=== PATIENT | male | born 1960 | race Caucasian/White ===

== ENCOUNTER 2017-01-05 17:33 | Inpatient (IN) | payer BC ==
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
[2017-01-05] MEDS ORDERED: SODIUM CHLORIDE 0.9% 1,000 ML IV ONE (18:20)
[2017-01-05] MEDS ORDERED: IV VANCOMYCIN PER PHARMACY 1 EACH MISC MISCELLANE PRN (18:21)
[2017-01-05] MEDS ORDERED: MORPHINE SULFATE 4 MG/ML SYRINGE IVP STA (18:23)
[2017-01-05] MEDS ORDERED: VANCOMYCIN 1,750 MG in SODIUM CHLORIDE 0.9% 250 ML IVPB STA (18:24)
--- NOTE | 2017-01-05 18:29 | XR ---
EXAMINATION TYPE: XR hand complete RT DATE OF EXAM: 01/05/2017 COMPARISON: NONE HISTORY: Infection fifth digit TECHNIQUE: 3 views FINDINGS: I see no fracture nor dislocation. There is a 2 mm metallic foreign body in the soft tissue s adjacent to the base of the middle phalanx of the index finger. There is soft tissue swelling in th e little finger. I see no focal bone destruction. IMPRESSION: Metal foreign body in the index finger. Little finger soft tissue swelling. No sign of osteomyelitis.
[2017-01-05] MEDS ORDERED: AMPICILLIN-SULBACTAM 3 GM in SODIUM CHLORIDE 0.9% 100 ML IVPB STA (19:03)
[2017-01-05] MEDS ORDERED: ACETAMINOPHEN TAB 325 MG TAB PO PRN (19:24)
[2017-01-05] MEDS ORDERED: NALOXONE 0.4 MG/ML 1 ML VIAL IV PRN (19:24)
[2017-01-05] MEDS ORDERED: ONDANSETRON 4 MG/2 ML VIAL IVP PRN (19:24)
[2017-01-05] MEDS ORDERED: IBUPROFEN 400 MG TAB PO PRN (19:24)
[2017-01-05 19:33] LABS: Basophils # (A) 0.1 k/uL (0-0.2); Basophils % (A) 1 %; CHCM 34.1; Eosinophils # (A) 0.2 k/uL (0-0.7); Eosinophils % (A) 2 %; HCT 49.7 % (39.0-53.0); HDW 2.49; HGB 16.4 gm/dL (13.0-17.5); Luc # (Auto) 0.26; Luc % (Auto) 3; Lymphocytes # (A) 1.8 k/uL (1.0-4.8); Lymphocytes % (A) 19 %; MCH 31.1 pg (25.0-35.0); MCV 94.3 fL (80.0-100.0); Mean Platelet Volume 7.7; Monocytes # (A) 0.6 k/uL (0-1.0); Monocytes % (A) 6 %; Neutrophils # (A) 6.9 k/uL (1.3-7.7); Neutrophils % (A) 70 %; RBC 5.27 m/uL (4.30-5.90); WBC 9.8 k/uL (3.8-10.6); WBC (Perox) 9.61
[2017-01-05 19:42] LABS: ALT 24 U/L (21-72); AST 15 U/L (17-59); Alkaline Phosphatase 142 U/L (38-126); Anion Gap 12 mmol/L; Blood Urea Nitrogen 27 mg/dL (9-20); Calcium 9.6 mg/dL (8.4-10.2); Carbon Dioxide 26 mmol/L (22-30); Chloride 97 mmol/L (98-107); Non-African American GFR(MDRD) >60 (>60 ml/min/1.73 sqM); Potassium 5.3 mmol/L (3.5-5.1); Sodium 135 mmol/L (137-145); Total Bilirubin 0.7 mg/dL (0.2-1.3); Total Protein 7.2 g/dL (6.3-8.2)
[2017-01-05 19:44] LABS: Glucose 507 mg/dL (74-99)
[2017-01-05] MEDS ORDERED: INSULIN REGULAR 100 UNIT/ML VIAL IV ONE (19:45)
[2017-01-05] MEDS: INSULIN LISPRO (humaLOG) 300 UNIT/3 ML VIAL SQ SCH (20:36)
[2017-01-05 20:45] LABS: Glucose,Whole Blood 393 mg/dL (75-99)
[2017-01-05] MEDS: SODIUM CHLORIDE 0.9% 1,000 ML IV SCH (21:24)
[2017-01-05 21:43] VITALS: BMI 25.7
[2017-01-05] MEDS: MORPHINE SULFATE 4 MG/ML SYRINGE IV PRN (23:35)
[2017-01-06] MEDS: KETOROLAC 30 MG/ML 1 ML VIAL IVP PRN ×2 (00:49→16:43)
[2017-01-06] MEDS: SODIUM CHLORIDE 0.9% 1,000 ML IV SCH ×2 (06:44→16:11)
[2017-01-06 07:13] LABS: Glucose,Whole Blood 242 mg/dL (75-99)
[2017-01-06] MEDS: INSULIN LISPRO (humaLOG) 300 UNIT/3 ML VIAL SQ SCH ×6 (07:35→21:34)
[2017-01-06 08:18] LABS: Anion Gap 9 mmol/L; Blood Urea Nitrogen 25 mg/dL (9-20); Carbon Dioxide 22 mmol/L (22-30); Chloride 107 mmol/L (98-107); Glucose 215 mg/dL (74-99); Non-African American GFR(MDRD) >60 (>60 ml/min/1.73 sqM); Potassium 4.6 mmol/L (3.5-5.1); Sodium 138 mmol/L (137-145)
[2017-01-06 08:38] LABS: Hemoglobin A1C 10.6 % (4.2-6.1)
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
[2017-01-06] MEDS ORDERED: IV VANCOMYCIN PER PHARMACY 1 EACH MISC MISCELLANE PRN (11:08)
[2017-01-06] MEDS ORDERED: VANCOMYCIN 1,750 MG in SODIUM CHLORIDE 0.9% 250 ML IVPB STA (11:23)
[2017-01-06] MEDS: MORPHINE SULFATE 4 MG/ML SYRINGE IV PRN ×2 (11:42→21:00)
[2017-01-06 12:08] LABS: Glucose,Whole Blood 289 mg/dL (75-99)
[2017-01-06 17:03] LABS: Glucose,Whole Blood 338 mg/dL (75-99)
[2017-01-06] MEDS ORDERED: MIDAZOLAM 2 MG/2 ML VIAL IV PRN (19:51)
[2017-01-06] MEDS: LACTATED RINGERS 1,000 ML IV SCH (19:56)
[2017-01-06 20:47] LABS: Glucose,Whole Blood 404 mg/dL (75-99)
[2017-01-06] MEDS: INSULIN DETEMIR 100 UNIT/ML 10 ML VIAL SQ SCH (20:57)
[2017-01-06] MEDS ORDERED: VANCOMYCIN 1,500 MG in SODIUM CHLORIDE 0.9% 250 ML IVPB SCH (22:00)
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
[2017-01-06 23:48] LABS: C Reactive Protein 43.2 mg/L (<10.0)
[2017-01-07] MEDS: ceFAZolin 2 GM in SODIUM CHLORIDE 0.9% 100 ML IVPB SCH ×4 (00:18→23:17)
[2017-01-07] MEDS: SODIUM CHLORIDE 0.9% 1,000 ML IV SCH ×3 (00:21→21:06)
[2017-01-07 02:15] LABS: Glucose,Whole Blood 186 mg/dL (75-99)
[2017-01-07 07:11] LABS: Glucose,Whole Blood 100 mg/dL (75-99)
[2017-01-07] MEDS: PANTOPRAZOLE 40 MG TABLET PO SCH (07:55)
[2017-01-07] MEDS: ASPIRIN 81 MG CHEW PO SCH (07:55)
[2017-01-07] MEDS: INSULIN LISPRO (humaLOG) 300 UNIT/3 ML VIAL SQ SCH ×8 (07:55→21:04)
[2017-01-07 08:39] LABS: Anion Gap 9 mmol/L; Blood Urea Nitrogen 18 mg/dL (9-20); Calcium 8.7 mg/dL (8.4-10.2); Carbon Dioxide 25 mmol/L (22-30); Chloride 107 mmol/L (98-107); Glucose 96 mg/dL (74-99); Non-African American GFR(MDRD) >60 (>60 ml/min/1.73 sqM); Potassium 4.4 mmol/L (3.5-5.1); Sodium 141 mmol/L (137-145)
[2017-01-07] MEDS: MORPHINE SULFATE 4 MG/ML SYRINGE IV PRN ×3 (10:00→21:04)
--- NOTE | 2017-01-07 10:13 | P.PN ---
Subjective Principal diagnosis: Right little finger cellulitis This is a 56-year-old gentleman whom we're following regarding infection to his right little finger. He states that his pain is improved today. He states that he has purulent drainage with the warm soaks. Objective - Vital Signs Vital signs: Vital Signs Temp 96.2 F L 01/07/17 07:00 Pulse 68 01/07/17 07:00 Resp 16 01/07/17 07:00 BP 136/63 01/07/17 07:00 Pulse Ox 97 01/07/17 07:00 Intake & Output 01/06/17 01/07/17 01/07/17 18:59 06:59 18:59 Weight 79 kg Other: Voiding Method Toilet Toilet # Voids 2 2 1 - Exam This is a pleasant 56-year-old gentleman in no acute distress. He is alert and oriented 3. Exam of the right upper extremity reveals that the little finger has less swelling today. There is mild erythema. There is no active drainage at this time. He has improved motion to the MCP and PIP joints. Neurovascular status the upper extremity is intact. - Labs CBC & Chem 7: 01/05/17 19:10 01/07/17 07:57 Labs: Abnormal Lab Results - Last 24 Hours (Table) 01/06/17 01/06/17 01/06/17 Range/Units 07:44 12:01 17:00 POC Glucose (mg/dL) 289 H 338 H (75-99) mg/dL C-Reactive Protein 43.2 H (<10.0) mg/L Prealbumin 14 L (18-36) mg/dL 01/06/17 01/07/17 01/07/17 Range/Units 20:46 02:13 07:02 POC Glucose (mg/dL) 404 H 186 H 100 H (75-99) mg/dL C-Reactive Protein (<10.0) mg/L Prealbumin (18-36) mg/dL Microbiology - Last 24 Hours (Table) 01/05/17 19:10 Blood Culture - Preliminary Blood No Growth after 24 hours Assessment and Plan (1) Cellulitis of right little finger Status: Acute Plan: The clinical and x-ray findings are discussed with the patient. He is able to extend the finger fully so I am less concerned about a flexor tenosynovitis. He is improving clinically. I discussed the case with Dr. King who agrees that there is no indication for incision and drainage today. We will continue with warm soaks. I recommend 1 more day of IV antibiotics. We will reevaluate in the morning. If he continues to improve he may be discharged from orthopedic standpoint on oral antibiotics. We will most likely have him continue warm soaks at home.
[2017-01-07 12:00] LABS: Glucose,Whole Blood 256 mg/dL (75-99)
[2017-01-07] MEDS: MULTIVITAMINS, THERA 1 EACH TAB PO SCH (12:44)
--- NOTE | 2017-01-07 16:06 | P.PN ---
Subjective 01/07/2017. Personal being dictated for Dr. Corral. Interval history: Is a 56-year-old gentleman admitted with right little finger infection/cellulitis with purulent drainage and multiple other medical issues. Evaluated by orthopedics and patient is scheduled for potential I&D tomorrow. X -ray reporting metal foreign body in the index finger, soft tissue swelling, no sign of osteomyelitis. Maintained on ceftazolin as per infectious disease. Denies chest pain,palpitations or increasing shortness of breath. Objective - Vital Signs Vital signs: Vital Signs Temp 96.5 F L 01/07/17 15:00 Pulse 76 01/07/17 15:00 Resp 19 01/07/17 15:00 BP 154/73 01/07/17 15:00 Pulse Ox 97 01/07/17 15:00 Intake & Output 01/06/17 01/07/17 01/07/17 18:59 06:59 18:59 Weight 79 kg Other: Voiding Method Toilet Toilet # Voids 2 2 3 - Exam PHYSICAL EXAM : VITAL SIGNS: [as above] GENERAL: [Sitting up in bed, no acute distress] HEENT: [Pupils equal conjunctiva normal. Oral mucosa moist] NECK: [Supple, no JVD] RESPIRATORY EFFORT:[ Normal] LUNGS: [Clear to auscultation, bilateral bases diminished, no wheezing crackles or rhonchi] CARDIOVASCULAR[ regular S1 and S2, no murmurs rubs or gallops] GI: [Abdomen soft, nontender, positive bowel sounds. No guarding, no rigidity] PSYCH: [Alert and oriented -3, mood and affect normal.] SKIN: [Right little finger edematous, currently without drainage, limited mobility, limited flexion] NEURO: No focal deficits, moves all 4 extremities, strength and sensation grossly intact - Labs CBC & Chem 7: 01/05/17 19:10 01/07/17 07:57 Labs: Abnormal Lab Results - Last 24 Hours (Table) 01/06/17 01/06/17 01/06/17 Range/Units 07:44 17:00 20:46 POC Glucose (mg/dL) 338 H 404 H (75-99) mg/dL C-Reactive Protein 43.2 H (<10.0) mg/L Prealbumin 14 L (18-36) mg/dL 01/07/17 01/07/1701/07/17 Range/Units 02:13 07:02 11:55 POC Glucose (mg/dL) 186 H 100 H 256 H (75-99) mg/dL C-Reactive Protein (<10.0) mg/L Prealbumin (18-36) mg/dL Microbiology - Last 24 Hours (Table) 01/05/17 19:10 Blood Culture - Preliminary Blood No Growth after 24 hours Assessment and Plan Plan: 1.[Cellulitis of right little finger,]. 2. [ Diabetes mellitus type 2]. 3. [ CAD]. 4. [ Gastroesophageal reflux disease]. 5. [ Ongoing nicotine dependence]. And multiple other medical issues. Plan: Continue on current medication regime ,monitoring and symptomatic treatment. Antibiotics as per infectious disease. Orthopedics reevaluating finger in a.m. for potential I&D. Close monitoring of Accu-Cheks. Further recommendations to follow. Discharge planning in progress. The impression and plan of care has been dictated as directed. : I performed a H&P examination of this patient and discussed the same with the dictator. I agree with the dictator's note. Any additional findings/opinions/ etc. will be noted.
[2017-01-07 16:52] LABS: Glucose,Whole Blood 177 mg/dL (75-99)
--- NOTE | 2017-01-07 18:36 | P.PN ---
Subjective Principal diagnosis: Abscess right hand Pleasant 56-year-old male with long-standing history of diabetes mellitus type 2 presents to the local emergency center a few days ago. Is having pain and swelling to his right hand fifth finger. He had a pustule that had formed was getting some pain and swelling to his finger. He was seen but no blood work was performed. Concerns to MRSA infection and was placed on oral Bactrim. Now presents the emergency center at this facility with increasing pain and swelling to the hand. It is over the fifth finger right hand tracking along the lateral surface of the hand. Difficulty with range of motion. The patient relates this evening that the areas opened and drained and has had a major improvement of the pain and discomfort upon the movement of the hand. There is also complaints of some difficulties with multiple skin lesions that he has not back of his neck and his upper arm. The patient relates that he has been now 3 months without test strips for his glucose control. He is actually borrowed some insulin from friends until he could get some further input from his primary care physician. He is denying significant fevers chills or rigors. He has no other acute complaints at this time. Outside culture shows MSSA. Tolerating high-dose ceftazolin well Orthopedics is following up considering incision and drainage tomorrow. Objective - Vital Signs Vital signs: Vital Signs Temp 96.5 F L 01/07/17 15:00 Pulse 76 01/07/17 15:00 Resp 19 01/07/17 15:00 BP 154/73 01/07/17 15:00 Pulse Ox 97 01/07/17 15:00 Intake & Output 01/06/17 01/07/17 01/07/17 18:59 06:59 18:59 Weight 79 kg Other: Voiding Method Toilet Toilet # Voids 2 2 3 - Exam Jose 56-year-old male of aesthetic build HEENT: Anicteric conjunctiva are pink and moist nasal mucosa grossly intact without significant lesions, there is no thrush. Neck: The neck is supple without significant lymphadenopathy or thyromegaly. Lungs: Symmetrical air entry is noted. There are few basilar crackles and scattered wheezes are noted. No bronchial sounds. Heart: Regular rate and rhythm with an audible S1-S2, no S3 soft S4 There is no significant murmur click or rub, PMI was nondisplaced. Abdomen: Positive bowel sounds soft and nontender without palpable masses or organomegaly. There was no guarding or rebound. Extremities: The left upper extremity has no lesions. Right upper shoulder reveals evidence of the abscess on the proximal phalanx fifth finger. Is evidence of some erythema to the area that does track and of the hand. The significant pain that he was having earlier is now improved with the spontaneous opening of the abscess. Tenderness is improved. He has remarkably good range of motion to that fifth finger. The lower extremities are free from significant edema. The peripheral pulses were 2+ and symmetric. Neuro: Awake alert oriented to person place and time. There are no acute new gross focal sensory motor deficits. - Labs CBC & Chem 7: 01/05/17 19:10 01/07/17 07:57 Labs: Abnormal Lab Results - Last 24 Hours (Table) 01/06/17 01/06/17 01/07/17 Range/Units 07:44 20:46 02:13 POC Glucose (mg/dL) 404 H 186 H (75-99) mg/dL C-Reactive Protein 43.2 H (<10.0) mg/L Prealbumin 14 L (18-36) mg/dL 01/07/17 01/07/17 01/07/17 Range/Units 07:02 11:55 16:51 POC Glucose (mg/dL) 100 H 256 H 177 H (75-99) mg/dL C-Reactive Protein (<10.0) mg/L Prealbumin (18-36) mg/dL Microbiology - Last 24 Hours (Table) 01/05/17 19:10 Blood Culture - Preliminary Blood No Growth after 24 hours Laboratory Results WBC 9.8 k/uL (3.8-10.6) 01/05/17 19:10 RBC 5.27 m/uL (4.30-5.90) 01/05/17 19:10 Hgb 16.4 gm/dL (13.0-17.5) 01/05/17 19:10 Hct 49.7 % (39.0-53.0) 01/05/17 19:10 MCV 94.3 fL (80.0-100.0) 01/05/17 19:10 MCH 31.1 pg (25.0-35.0) 01/05/17 19:10 MCHC 33.0 g/dL (31.0-37.0) 01/05/17 19:10 RDW 13.0 % (11.5-15.5) 01/05/17 19:10 Plt Count 260 k/uL (150-450) 01/05/17 19:10 Neutrophils % 70 % 01/05/17 19:10 Lymphocytes % 19 % 01/05/17 19:10 Monocytes % 6 % 01/05/17 19:10 Eosinophils % 2 % 01/05/17 19:10 Basophils % 1 % 01/05/17 19:10 Neutrophils # 6.9 k/uL (1.3-7.7) 01/05/17 19:10 Lymphocytes # 1.8 k/uL (1.0-4.8) 01/05/17 19:10 Monocytes # 0.6 k/uL (0-1.0) 01/05/17 19:10 Eosinophils # 0.2 k/uL (0-0.7) 01/05/17 19:10 Basophils # 0.1 k/uL (0-0.2) 01/05/17 19:10 ESR 15 mm/hr (0-15) 01/06/17 07:44 Sodium 141 mmol/L (137-145) 01/07/17 07:57 Potassium 4.4 mmol/L (3.5-5.1) 01/07/17 07:57 Chloride 107 mmol/L (98-107) 01/07/17 07:57 Carbon Dioxide 25 mmol/L (22-30) 01/07/17 07:57 Anion Gap 9 mmol/L 01/07/17 07:57 BUN 18 mg/dL (9-20) 01/07/17 07:57 Creatinine 0.71 mg/dL (0.66-1.25) 01/07/17 07:57 Est GFR (MDRD) Af Amer >60 (>60 ml/min/1.73 sqM) 01/07/17 07:57 Est GFR (MDRD) Non-Af >60 (>60 ml/min/1.73 sqM) 01/07/17 07:57 Glucose 96 mg/dL (74-99) 01/07/17 07:57 POC Glucose (mg/dL) 177 mg/dL (75-99) H 01/07/17 16:51 POC Glu Scrap Stripper Hand ID Mimi Reed 01/07/17 16:[address] Glu mg/dL 258 mg/dL 01/05/17 19:10 Hemoglobin A1c 10.6 % (4.2-6.1) H 01/05/17 19:10 Plasma Lactic Acid Miki 1.7 mmol/L (0.7-2.0) 01/05/17 19:10 Calcium 8.7 mg/dL (8.4-10.2) 01/07/17 07:57 Total Bilirubin 0.7 mg/dL (0.2-1.3) 01/05/17 19:10 AST 15 U/L (17-59) L 01/05/17 19:10 ALT 24 U/L (21-72) 01/05/17 19:10 Alkaline Phosphatase 142 U/L (38-126) H 01/05/17 19:10 C-Reactive Protein 43.2 mg/L (<10.0) H 01/06/17 07:44 Total Protein 7.2 g/dL (6.3-8.2) 01/05/17 19:10 Albumin 4.2 g/dL (3.5-5.0) 01/05/17 19:10 Prealbumin 14 mg/dL (18-36) L 01/06/17 07:44 Microbiology 01/05/17 19:10 Blood Blood Culture - Preliminary No Growth after 24 hours Assessment and Plan (1) Diabetes mellitus type 2 with complications, uncontrolled Narrative/Plan: 48-year-old male who has history of heavy is not as type II this had difficulty over the last several months with control of his diabetes. He had no test strips. He is relating that he started to have symptoms about a week ago with some fatigue and malaise. Food was tasting poorly. Was unable to check his sugar. He was starting to have difficulties with the skin with multiple small skin lesions and abscesses. Developed the abscess in his right hand. It markedly worsened quickly. Failed oral antibiotic therapy. Has now been admitted. She's been seen by orthopedics. Appears incision now been some spontaneous drainage. Orthopedics will reevaluate for the need for true surgical incision and drainage. He is now had increasing swelling. Increasing concerns for deeper abscess not responding well to antibiotic therapy due to his recent uncontrolled diabetes or diabetic systolic and may need to do an incision and drainage tomorrow. MSSA was isolated and by therapy will be altered to high-dose Cefazolin. Patient believes is up-to-date with his tetanus. Multivitamin is added. Pre- albumin is low at 14 and needs protein supplementation. Blood sugars are much better. Sed rate is fortunately only 15 in the CRP is elevated due to the current infection. Hemoglobin A1c is very elevated at 10.6. He will certainly need extensive follow-up about his diabetes care after discharge to prevent further difficulties. The patient is known to the service from his history of the penile implant infection. Once he is infection free for a while but sugars are well he is contemplating having an exchange of his current prosthesis. I suggested I will be happy to follow him here in [place] area if he does have surgery. Status: Acute (2) Abscess of right hand including fingers Status: Acute (3) MSSA (methicillin susceptible Staphylococcus aureus) infection Status: Acute
[2017-01-07] MEDS: LACTATED RINGERS 1,000 ML IV SCH (19:47)
[2017-01-07 20:53] LABS: Glucose,Whole Blood 93 mg/dL (75-99)
[2017-01-07] MEDS: INSULIN DETEMIR 100 UNIT/ML 10 ML VIAL SQ SCH (21:06)
[2017-01-07 23:22] VITALS: RESP 16
[2017-01-08 07:21] LABS: Glucose,Whole Blood 232 mg/dL (75-99)
[2017-01-08] MEDS: PANTOPRAZOLE 40 MG TABLET PO SCH (08:16)
[2017-01-08] MEDS: ceFAZolin 2 GM in SODIUM CHLORIDE 0.9% 100 ML IVPB SCH (08:16)
[2017-01-08] MEDS: INSULIN LISPRO (humaLOG) 300 UNIT/3 ML VIAL SQ SCH ×6 (08:22→13:14)
[2017-01-08] MEDS: ASPIRIN 81 MG CHEW PO SCH (08:30)
--- NOTE | 2017-01-08 08:44 | P.DS ---
Providers Date of admission: 01/05/17 19:52 Expected date of discharge: 01/08/17 Attending physician: Kael King Consults: 01/05/17 19:29 Consult Physician Urgent Consulting Provider: Pepe Soliman Consult Reason/Comments: right fifth finger tenosynovitis, hyperglycemia Do you want consulting provider notified?: Yes 01/06/17 11:08 Consult Physician Urgent Consulting Provider: Mayank Null Consult Reason/Comments: Eval right little finger Do you want consulting provider notified?: Yes Primary care physician: Stated None - Discharge Diagnosis(es) (1) Cellulitis of right little finger Current Visit: Yes Status: Acute (2) MSSA (methicillin susceptible Staphylococcus aureus) infection Current Visit: Yes Status: Acute Hospital Course: This is a 48-year-old male admitted to [facility] on 2016 with a right little finger infection. He is also had difficulty managing his blood sugar. He has been on IV antibiotics and doing warm soaks twice daily. The range of motion of his finger has improved significantly. The patient is stable from orthopedic standpoint on 01/08/2017 for discharge to home. Patient Condition at Discharge: Stable Plan - Discharge Summary New Discharge Prescriptions: No Action Esomeprazole Magnesium [NexIUM] 40 mg PO DAILY Aspirin EC [Ecotrin Low Dose] 81 mg PO DAILY #30 tablet. Sulfamethox-Tmp 800-160Mg [Bactrim DS 800-160 mg] 1 tab PO Q12HR Insulin Detemir [Levemir] 40 unit SQ HS Discharge Medication List Esomeprazole Magnesium [NexIUM] 40 mg PO DAILY 01/09/14 [History] Aspirin EC [Ecotrin Low Dose] 81 mg PO DAILY #30 tablet. 01/10/14 [Rx] Insulin Detemir [Levemir] 40 unit SQ HS 01/05/17 [History] Sulfamethox-Tmp 800-160Mg [Bactrim DS 800-160 mg] 1 tab PO Q12HR 01/05/17 [ History] Follow up Appointment(s)/Referral(s): Brennen Duke MD [STAFF PHYSICIAN] - 1-2 days Kael King MD [STAFF PHYSICIAN] - 1 Week Patient Instructions/Handouts: Type 2 Diabetes in Adults (DC), Tenosynovitis ( GEN) Activity/Diet/Wound Care/Special Instructions: Cardiac, diabetic diet. NO smoking, cessation information provided. Warm soaks with antibacterial soap twice daily. Antibiotics per Dr Null.
[2017-01-08 09:23] LABS: Anion Gap 9 mmol/L; Blood Urea Nitrogen 12 mg/dL (9-20); Calcium 9.3 mg/dL (8.4-10.2); Carbon Dioxide 26 mmol/L (22-30); Chloride 103 mmol/L (98-107); Glucose 248 mg/dL (74-99); Non-African American GFR(MDRD) >60 (>60 ml/min/1.73 sqM); Sodium 138 mmol/L (137-145)
[2017-01-08] MEDS: SODIUM CHLORIDE 0.9% 1,000 ML IV SCH (10:05)
[2017-01-08 12:07] LABS: Glucose,Whole Blood 165 mg/dL (75-99)
[2017-01-08] MEDS: MULTIVITAMINS, THERA 1 EACH TAB PO SCH (12:10)
[2017-01-08] MEDS: MORPHINE SULFATE 4 MG/ML SYRINGE IV PRN (15:33)
[2017-01-08 15:36] VITALS: BP 122/83; PULSE 71; TEMP 97.7
--- NOTE | 2017-01-08 16:07 | P.PN ---
Subjective Interval history: Is a 56-year-old gentleman admitted with right little finger infection/cellulitis with purulent drainage and multiple other medical issues. Evaluated by orthopedics and patient is scheduled for potential I&D tomorrow. X -ray reporting metal foreign body in the index finger, soft tissue swelling, no sign of osteomyelitis. Maintained on cefazolin as per infectious disease. Denies chest pain,palpitations or increasing shortness of breath. Objective - Vital Signs Vital signs: Vital Signs Temp 97.7 F 01/08/17 15:00 Pulse 71 01/08/17 15:00 Resp 16 01/08/17 15:00 BP 122/83 01/08/17 15:00 Pulse Ox 98 01/08/17 15:00 Intake & Output 01/07/17 01/08/17 01/08/17 18:59 06:59 18:59 Other: Voiding Method Toilet Toilet # Voids 3 1 2 - Exam PHYSICAL EXAM : VITAL SIGNS: [as above] GENERAL: [Sitting up in bed, no acute distress] HEENT: [Pupils equal conjunctiva normal. Oral mucosa moist] NECK: [Supple, no JVD] RESPIRATORY EFFORT:[ Normal] LUNGS: [Clear to auscultation, bilateral bases diminished, no wheezing crackles or rhonchi] CARDIOVASCULAR[ regular S1 and S2, no murmurs rubs or gallops] GI: [Abdomen soft, nontender, positive bowel sounds. No guarding, no rigidity] PSYCH: [Alert and oriented -3, mood and affect normal.] SKIN: [Right little finger edematous, currently without drainage, limited mobility, limited flexion] NEURO: No focal deficits, moves all 4 extremities, strength and sensation grossly intact - Labs CBC & Chem 7: 01/05/17 19:10 01/08/17 08:39 Labs: Abnormal Lab Results - Last 24 Hours (Table) 01/07/17 01/08/17 01/08/17 Range/Units 16:51 06:57 08:39 Creatinine 0.64 L (0.66-1.25) mg/dL Glucose 248 H (74-99) mg/dL POC Glucose (mg/dL) 177 H 232 H (75-99) mg/dL 01/08/17 Range/Units 11:48 Creatinine (0.66-1.25) mg/dL Glucose (74-99) mg/dL POC Glucose (mg/dL) 165 H (75-99) mg/dL Microbiology - Last 24 Hours (Table) 01/05/17 19:10 Blood Culture - Preliminary Blood No Growth after 48 hours Assessment and Plan Plan: Plan: 1.[Cellulitis of right little finger,]. Patient is on ceftezole. 2. [ Diabetes mellitus type 2]. Patient was continued on Lantus and I added pre -meal insulin 10 units with each meal and patient were discharged on 10 units of regular insulin. 3. [ CAD]. 4. [ Gastroesophageal reflux disease]. 5. [ Ongoing nicotine dependence]. We'll continue to follow the patient on as-needed basis.
--- NOTE | 2017-01-08 16:14 | P.PN ---
Subjective Principal diagnosis: Abscess right hand Pleasant 56-year-old male with long-standing history of diabetes mellitus type 2 presents to the local emergency center a few days ago. Is having pain and swelling to his right hand fifth finger. He had a pustule that had formed was getting some pain and swelling to his finger. He was seen but no blood work was performed. Concerns to MRSA infection and was placed on oral Bactrim. Now presents the emergency center at this facility with increasing pain and swelling to the hand. It is over the fifth finger right hand tracking along the lateral surface of the hand. Difficulty with range of motion. The patient relates this evening that the areas opened and drained and has had a major improvement of the pain and discomfort upon the movement of the hand. There is also complaints of some difficulties with multiple skin lesions that he has not back of his neck and his upper arm. The patient relates that he has been now 3 months without test strips for his glucose control. He is actually borrowed some insulin from friends until he could get some further input from his primary care physician. He is denying significant fevers chills or rigors. He has no other acute complaints at this time. Outside culture shows MSSA. Tolerating high-dose ceftazolin well Patient improved today. Has been seen by orthopedics. With his improvement no plans for incision and drainage. He's had spontaneous drainage. He does have some residual pain on the lateral surface of the fifth metacarpophalangeal joint. But the redness and difficulty with range of motion have improved. He has no fevers chills or rigors. Objective - Vital Signs Vital signs: Vital Signs Temp 97.7 F 01/08/17 15:00 Pulse 71 01/08/17 15:00 Resp 16 01/08/17 15:00 BP 122/83 01/08/17 15:00 Pulse Ox 98 01/08/17 15:00 Intake & Output 01/07/17 01/08/17 01/08/17 18:59 06:59 18:59 Other: Voiding Method Toilet Toilet # Voids 3 1 2 - Exam Pleasant 56-year-old male of aesthetic build HEENT: Anicteric conjunctiva are pink and moist nasal mucosa grossly intact without significant lesions, there is no thrush. Neck: The neck is supple without significant lymphadenopathy or thyromegaly. Lungs: Symmetrical air entry is noted. There are few basilar crackles and scattered wheezes are noted. No bronchial sounds. Heart: Regular rate and rhythm with an audible S1-S2, no S3 soft S4 There is no significant murmur click or rub, PMI was nondisplaced. Abdomen: Positive bowel sounds soft and nontender without palpable masses or organomegaly. There was no guarding or rebound. Extremities: The left upper extremity has no lesions. Right upper shoulder reveals evidence of the abscess on the proximal phalanx fifth finger. Is evidence of some erythema to the area that does track and of the hand. The significant pain that he was having earlier is now improved with the spontaneous opening of the abscess. Tenderness is improved. He has remarkably good range of motion to that fifth finger. There is no further purulent drainage. There are still some residual erythema at the site. Swelling is improved. Still has some point tenderness at the fifth metacarpophalangeal joint. But it does not inhibit his range of motion. No tenderness over the tendon structure. The lower extremities are free from significant edema. The peripheral pulses were 2+ and symmetric. Neuro: Awake alert oriented to person place and time. There are no acute new gross focal sensory motor deficits. - Labs CBC & Chem 7: 01/05/17 19:10 01/08/17 08:39 Labs: Abnormal Lab Results - Last 24 Hours (Table) 01/07/17 01/08/17 01/08/17 Range/Units 16:51 06:57 08:39 Creatinine 0.64 L (0.66-1.25) mg/dL Glucose 248 H (74-99) mg/dL POC Glucose (mg/dL) 177 H 232 H (75-99) mg/dL 01/08/17 Range/Units 11:48 Creatinine (0.66-1.25) mg/dL Glucose (74-99) mg/dL POC Glucose (mg/dL) 165 H (75-99) mg/dL Microbiology - Last 24 Hours (Table) 01/05/17 19:10 Blood Culture - Preliminary Blood No Growth after 48 hours Laboratory Results WBC 9.8 k/uL (3.8-10.6) 01/05/17 19:10 RBC 5.27 m/uL (4.30-5.90) 01/05/17 19:10 Hgb 16.4 gm/dL (13.0-17.5) 01/05/17 19:10 Hct 49.7 % (39.0-53.0) 01/05/17 19:10 MCV 94.3 fL (80.0-100.0) 01/05/17 19:10 MCH 31.1 pg (25.0-35.0) 01/05/17 19:10 MCHC 33.0 g/dL (31.0-37.0) 01/05/17 19:10 RDW 13.0 % (11.5-15.5) 01/05/17 19:10 Plt Count 260 k/uL (150-450) 01/05/17 19:10 Neutrophils % 70 % 01/05/17 19:10 Lymphocytes % 19 % 01/05/17 19:10 Monocytes % 6 % 01/05/17 19:10 Eosinophils % 2 % 01/05/17 19:10 Basophils % 1 % 01/05/17 19:10 Neutrophils # 6.9 k/uL (1.3-7.7) 01/05/17 19:10 Lymphocytes # 1.8 k/uL (1.0-4.8) 01/05/17 19:10 Monocytes # 0.6 k/uL (0-1.0) 01/05/17 19:10 Eosinophils # 0.2 k/uL (0-0.7) 01/05/17 19:10 Basophils # 0.1 k/uL (0-0.2) 01/05/17 19:10 ESR 15 mm/hr (0-15) 01/06/17 07:44 Sodium 138 mmol/L (137-145) 01/08/17 08:39 Potassium 5.0 mmol/L (3.5-5.1) 01/08/17 08:39 Chloride 103 mmol/L (98-107) 01/08/17 08:39 Carbon Dioxide 26 mmol/L (22-30) 01/08/17 08:39 Anion Gap 9 mmol/L 01/08/17 08:39 BUN 12 mg/dL (9-20) 01/08/17 08:39 Creatinine 0.64 mg/dL (0.66-1.25) L 01/08/17 08:39 Est GFR (MDRD) Af Amer >60 (>60 ml/min/1.73 sqM) 01/08/17 08:39 Est GFR (MDRD) Non-Af >60 (>60 ml/min/1.73 sqM) 01/08/17 08:39 Glucose 248 mg/dL (74-99) H 01/08/17 08:39 POC Glucose (mg/dL) 165 mg/dL (75-99) H 01/08/17 11:48 POC Glu Irrigation Installation Specialist ID Celia Hanks 01/08/17 11:[address] Glu mg/dL 258 mg/dL 01/05/17 19:10 Hemoglobin A1c 10.6 % (4.2-6.1) H 01/05/17 19:10 Plasma Lactic Acid Miki 1.7 mmol/L (0.7-2.0) 01/05/17 19:10 Calcium 9.3 mg/dL (8.4-10.2) 01/08/17 08:39 Total Bilirubin 0.7 mg/dL (0.2-1.3) 01/05/17 19:10 AST 15 U/L (17-59) L 01/05/17 19:10 ALT 24 U/L (21-72) 01/05/17 19:10 Alkaline Phosphatase 142 U/L (38-126) H 01/05/17 19:10 C-Reactive Protein 43.2 mg/L (<10.0) H 01/06/17 07:44 Total Protein 7.2 g/dL (6.3-8.2) 01/05/17 19:10 Albumin 4.2 g/dL (3.5-5.0) 01/05/17 19:10 Prealbumin 14 mg/dL (18-36) L 01/06/17 07:44 Microbiology 01/05/17 19:10 Blood Blood Culture - Preliminary No Growth after 48 hours Assessment and Plan (1) Diabetes mellitus type 2 with complications, uncontrolled Narrative/Plan: 48-year-old male who has history of heavy is not as type II this had difficulty over the last several months with control of his diabetes. He had no test strips. He is relating that he started to have symptoms about a week ago with some fatigue and malaise. Food was tasting poorly. Was unable to check his sugar. He was starting to have difficulties with the skin with multiple small skin lesions and abscesses. Developed the abscess in his right hand. It markedly worsened quickly. Failed oral antibiotic therapy. Has now been admitted. She's been seen by orthopedics. Appears incision now been some spontaneous drainage. Orthopedics will reevaluate for the need for true surgical incision and drainage. He is now had increasing swelling. Increasing concerns for deeper abscess not responding well to antibiotic therapy due to his recent uncontrolled diabetes or diabetic systolic and may need to do an incision and drainage tomorrow. MSSA was isolated and by therapy will be altered to high-dose Cefazolin. Patient believes is up-to-date with his tetanus. Multivitamin is added. Pre- albumin is low at 14 and needs protein supplementation. Blood sugars are much better. Sed rate is fortunately only 15 in the CRP is elevated due to the current infection. Hemoglobin A1c is very elevated at 10.6. He will certainly need extensive follow-up about his diabetes care after discharge to prevent further difficulties. The patient is known to the service from his history of the penile implant infection. Once he is infection free for a while but sugars are well he is contemplating having an exchange of his current prosthesis. I suggested I will be happy to follow him here in [facility] if he does have surgery. The patient is now improved. Will be discharged home. Cefuroxime 500 mg every 12 hours as given for home therapy. When the for 10 days. Follow-up in the office next week to ensure that he has ongoing improvement. Contact the office if he has any worsening status. Significant time was spent regarding his diabetes care. And the importance of monitoring his blood sugars and taking his insulins to improve his hemoglobin A1c and prevent further infections and allow current infection to heal. He will take a multivitamin at home also. [facility] Status: Acute (2) Abscess of right hand including fingers Status: Acute (3) MSSA (methicillin susceptible Staphylococcus aureus) infection Status: Acute
--- NOTE | 2017-01-08 16:47 | CONS ---
CONSULTATION AND H&P REASON FOR CONSULTATION: Right finger cellulitis; possibility of tenosynovitis of right little finger. Highly elevated blood sugars going up to 500. Management of diabetes mellitus. Patient is a 56-year-old. Had MRSA in the past. He came in with right little finger infection which started on Tuesday. The patient was given Bactrim and was discharged home. Patient took Bactrim for about 2 to 3 days, without any improvement in symptoms. Patient came back and patient was admitted with a swollen finger, for which Orthopedics evaluated the patient. Patient admitted to orthopedic service. They do not believe patient has significant tenosynovitis. Patient was appropriately started on vancomycin. Patient was started on ( ) watch his blood sugars today. Patient ( ) yesterday. His blood sugars were at 500; now came down to 200. Will watch with his home regimen and see how his blood sugars ( ) accordingly. Patient has severe pain in the finger area where he has cellulitis and the possibility of a small abscess in that area which started as a small boil which he tried to drain the pus from. ROS: all others systems were reviewed and were negative. PAST MEDICAL HISTORY: 1. Coronary artery disease. 2. Diabetes mellitus, although patient uses aspirin. 3. DVT in the past. 4. Gastroesophageal reflux disease. 5. Myocardial infarction in the past. 6. Pneumonia. 7. Prostate disorder. 8. Cardiac catheterization and stent placement. 9. Orthopedic surgeries in the past. SOCIAL HISTORY: Patient does smoke a pack per day. Denied any alcohol abuse or any drug abuse. FAMILY HISTORY: Patient was adopted and does not know any of his biological family history. Home medications include: 1. Esomeprazole. 2. Levemir 40 units at bedtime. 3. Bactrim. Patient is also started on 8 units t.i.d. pre-meal insulin, which I believe is appropriate. Patient was started on vancomycin. PHYSICAL EXAMINATION: VITAL SIGNS: Temperature 96.6, pulse of 66, respiratory rate of 18, blood pressure 128/71. Saturating at 99% on room air. ( ) MUSCULOSKELETAL: Patient's right little finger, fifth finger, has significant swelling. There is no active drainage of pus. Patient is soaking ( ) in the warm water when I evaluated the patient, because of which I am unable to assess the redness and localization of temperature appropriately at that time. LABORATORY DATA: CBC, CMP are abnormal for low sodium of 135, which improved, which is secondary to pseudohyponatremia. Potassium of 5.3, which improved. Patient has minimal anion gap resulting in elevated potassium. Even though the ketones were never tested, patient has normal anion gap now and improved blood sugars to 215 today. Hemoglobin A1c of 10.6, consistent with uncontrolled blood sugars at home. AST is minimally elevated; nothing concerning at this point of time. Hand x-ray showed a metal or a foreign body in ( ) index finger. Little finger soft tissue swelling. ASSESSMENT AND PLAN: 1. ( ) cellulitis with possible ( ) and rule out tenosynovitis of the right little finger, for which we will continue with vancomycin. Orthopedics evaluated the patient. 2. Highly elevated blood sugars; uncontrolled blood sugars ( ) infection. Will change the insulin regimen ( ). Recheck the blood sugars. Continue to recheck the blood sugars and up-titrate as needed. Patient's present uncontrolled blood sugars are probably related to his active infection. 3. Hyperkalemia and hyponatremia secondary to highly elevated blood sugars, improved at this point of time. 4. Coronary artery disease. Continue with home medications. Patient is only taken aspirin at this point of time. 5. Gastroesophageal reflux disease, for which his proton pump inhibitor will be continued. Thank you for letting me participate in the patient's care. Will continue to follow the patient. STALIND
== END 2017-01-08 16:06 | disposition home or self-care (01) | DRG 638 ==
LOC: EC 17:33 → 4MS4W 19:52
PROVIDERS: ADMIT Orthopaedic Surgery; ATTEND Orthopaedic Surgery
DX: E11.628 Type 2 diabetes mellitus with other skin complications (principal); E87.1 Hypo-osmolality and hyponatremia; L02.511 Cutaneous abscess of right hand; B95.61 Methicillin susceptible Staphylococcus aureus infection as the cause of diseases classified elsewhere; E11.40 Type 2 diabetes mellitus with diabetic neuropathy, unspecified; L03.011 Cellulitis of right finger; E11.65 Type 2 diabetes mellitus with hyperglycemia; E87.5 Hyperkalemia; H40.9 Unspecified glaucoma; I25.10 Atherosclerotic heart disease of native coronary artery without angina pectoris; I25.2 Old myocardial infarction; K21.9 Gastro-esophageal reflux disease without esophagitis; K22.70 Barrett's esophagus without dysplasia; N42.9 Disorder of prostate, unspecified; K57.90 Diverticulosis of intestine, part unspecified, without perforation or abscess without bleeding; F17.200 Nicotine dependence, unspecified, uncomplicated; Z79.4 Long term (current) use of insulin; Z79.82 Long term (current) use of aspirin; Z85.46 Personal history of malignant neoplasm of prostate; Z86.14 Personal history of Methicillin resistant Staphylococcus aureus infection; Z95.5 Presence of coronary angioplasty implant and graft
CPT/HCPCS: 36415; 80048; 80053; 83036; 83605; 84134; 85025; 85652; 86140; 87040; 96361; 96365; 96375; 99285

== ENCOUNTER 2017-06-01 00:20 | Emergency (ER) | payer BC ==
[2017-06-01 00:34] VITALS: RESP 18
[2017-06-01 01:14] LABS: Basophils # (A) 0.1 k/uL (0-0.2); Basophils % (A) 1 %; CH 31.6; CHCM 34.2; Eosinophils # (A) 0.2 k/uL (0-0.7); Eosinophils % (A) 3 %; HCT 44.4 % (39.0-53.0); HDW 2.44; HGB 14.8 gm/dL (13.0-17.5); Luc % (Auto) 2; Lymphocytes # (A) 2.4 k/uL (1.0-4.8); Lymphocytes % (A) 29 %; MCHC 33.3 g/dL (31.0-37.0); Mean Platelet Volume 7.7; Monocytes # (A) 0.5 k/uL (0-1.0); Monocytes % (A) 6 %; Neutrophils # (A) 4.8 k/uL (1.3-7.7); Neutrophils % (A) 59 %; RBC 4.78 m/uL (4.30-5.90); WBC 8.3 k/uL (3.8-10.6); WBC (Perox) 8.23
[2017-06-01 01:23] LABS: ALT 36 U/L (21-72); AST 20 U/L (17-59); Alkaline Phosphatase 90 U/L (38-126); Anion Gap 13 mmol/L; Blood Urea Nitrogen 8 mg/dL (9-20); Calcium 9.2 mg/dL (8.4-10.2); Carbon Dioxide 22 mmol/L (22-30); Chloride 98 mmol/L (98-107); Glucose 272 mg/dL (74-99); Non-African American GFR(MDRD) >60 (>60 ml/min/1.73 sqM); Potassium 4.3 mmol/L (3.5-5.1); Sodium 133 mmol/L (137-145); Total Bilirubin 0.5 mg/dL (0.2-1.3); Total Protein 6.8 g/dL (6.3-8.2)
[2017-06-01 01:26] LABS: Alcohol 224 mg/dL
[2017-06-01 01:30] LABS: INR 1.1 (<1.2); Partial Thromboplastin Time 27.8 sec (22.0-30.0); Prothrombin Time 11.4 sec (9.0-12.0)
--- NOTE | 2017-06-01 01:30 | CT ---
EXAMINATION TYPE: CT brain jaime stanley DATE OF EXAM: 06/01/2017 COMPARISON: 01/08/2014 HISTORY: ETOH, fall backwards down [address] DLP: 1362.30 mGycm Automated exposure control for dose reduction was used. TECHNIQUE: CT scan of the head and cervical spine are performed without contrast. FINDINGS: Ventricles of normal size. There is no mass effect nor midline shift. There is no sign of intracranial hemorrhage. The calvarium is intact. There is left frontal scalp soft tissue swelling. The cervical vertebra have normal alignment. There is hypertrophic anterior bridging osteophyte forma tion from C2 to C5. Facet joints appear intact. The skull base is intact. There is no evidence of a f racture. IMPRESSION: Left frontal scalp hematoma. No acute intracranial abnormality. Brain is unchanged compared to old ex am. Ethmoid sinusitis is noted. Spondylotic changes in the cervical spine with hypertrophic extensive anterior bridging osteophyte fo rmation. No fracture.
--- NOTE | 2017-06-01 02:00 | XR ---
EXAMINATION TYPE: XR chest 1V portable DATE OF EXAM: 06/01/2017 COMPARISON: 02/13/2013 HISTORY: Fell down the stairs TECHNIQUE: Single frontal view of the chest is obtained. FINDINGS: Heart and mediastinum are normal. Lungs are clear. Diaphragm is normal. Bony thorax is int act. There is no sign of pneumothorax. IMPRESSION: Normal chest. No change.
--- NOTE | 2017-06-01 02:01 | XR ---
EXAMINATION TYPE: XR shoulder complete LT DATE OF EXAM: 06/01/2017 COMPARISON: NONE HISTORY: Fell down the stairs TECHNIQUE: 3 views FINDINGS: I see no fracture nor dislocation. Glenohumeral joint is anatomic. Joint spaces are normal. IMPRESSION: Negative left shoulder exam
[2017-06-01 02:35] LABS: Appearance,Urine Clear (Clear); Bilirubin,Urine Negative (Negative); Glucose,Urine (UA) 4+ (Negative); Ketones,Urine Negative (Negative); Leukocyte Esterase,Urine Negative (Negative); Nitrite,Urine Negative (Negative); Protein,Urine Negative (Negative); UA Billing (MACRO vs. MICRO) CHEM; Urobilinogen,Urine <2.0 mg/dL (<2.0)
[2017-06-01] MEDS ORDERED: DIPH,PERTUS(ACELL)TETVAC-LF 0.5 ML VIAL IM ONE (03:11)
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
[2017-06-01 03:40] LABS: Specific Gravity,Urine 1.001 (1.001-1.035)
[2017-06-01 03:59] VITALS: BP 106/64; PULSE 80; TEMP 98
== END 2017-06-01 03:58 | disposition home or self-care (01) ==
LOC: EC 00:20
DX: S01.01XA Laceration without foreign body of scalp, initial encounter (principal); S49.92XA Unspecified injury of left shoulder and upper arm, initial encounter; E11.9 Type 2 diabetes mellitus without complications; K21.9 Gastro-esophageal reflux disease without esophagitis; Z23 Encounter for immunization; Z86.14 Personal history of Methicillin resistant Staphylococcus aureus infection; Z85.46 Personal history of malignant neoplasm of prostate; Z79.4 Long term (current) use of insulin; Z79.899 Other long term (current) drug therapy; W10.9XXA Fall (on) (from) unspecified stairs and steps, initial encounter; Y92.009 Unspecified place in unspecified non-institutional (private) residence as the place of occurrence of the external cause
CPT/HCPCS: 36415; 70450; 71010; 72125; 80053; 80320; 81003; 85025; 85610; 85730; 90471; 90715; 93005; 99284

== ENCOUNTER → 2017-11-07 | Outpatient (CLI) | payer BC ==
[2017-11-07 08:59] LABS: ALT 31 U/L (21-72); AST 28 U/L (17-59); Albumin 4.3 g/dL (3.5-5.0); Alkaline Phosphatase 89 U/L (38-126); Anion Gap 12 mmol/L; Blood Urea Nitrogen 11 mg/dL (9-20); Calcium 9.9 mg/dL (8.4-10.2); Carbon Dioxide 30 mmol/L (22-30); Chloride 100 mmol/L (98-107); Cholesterol 176 mg/dL (<200); Glucose 91 mg/dL (74-99); HDL Cholesterol 56 mg/dL (40-60); LDL Cholesterol,Calculated 81 mg/dL (0-99); Potassium 5.5 mmol/L (3.5-5.1); Sodium 142 mmol/L (137-145); Total Bilirubin 0.7 mg/dL (0.2-1.3); Triglycerides 196 mg/dL (<150)
[2017-11-07 20:28] LABS: Hemoglobin A1C 8.1 % (4.0-6.0)
== END | disposition home or self-care (01) ==
LOC: LABWHC1 08:23
PROVIDERS: ATTEND Internal Medicine Endocrinology, Diabetes & Metabolism
DX: E11.65 Type 2 diabetes mellitus with hyperglycemia (principal)
CPT/HCPCS: 36415; 80053; 80061; 82043; 82570; 83036

== ENCOUNTER → 2018-04-26 | Outpatient (CLI) | payer BC ==
[2018-04-26 11:44] LABS: Prostate Specific Antigen <0.10 ng/mL (0.00-4.00)
== END | disposition home or self-care (01) ==
LOC: LABWHC1 08:08
PROVIDERS: ATTEND Internal Medicine Endocrinology, Diabetes & Metabolism
DX: E11.65 Type 2 diabetes mellitus with hyperglycemia (principal)
CPT/HCPCS: 36415; 82043; 82570; 84153; 84443

== ENCOUNTER → 2018-12-27 | Outpatient (CLI) | payer BC ==
[2018-12-27 16:54] LABS: African American GFR (CKD) 94.4 (60.0-200.0); Albumin 4.4 g/dL (3.80-4.90); Albumin/Globulin Ratio 1.91 (1.60-3.17); Anion Gap 7.9 mmol/L (4.00-12.00); Carbon Dioxide 28.1 mmol/L (21.6-31.8); Globulin 2.3 g/dL (1.6-3.3); LDL Cholesterol,Calculated 79.8 mg/dL (0.0-131.0); Potassium 5.4 mmol/L (3.5-5.5); Total Bilirubin 0.5 mg/dL (0.2-1.2); Total Protein 6.7 g/dL (6.2-8.2); VLDL Calculation 62.2 mg/dL (5.00-40.00)
[2018-12-27 17:56] LABS: Hemoglobin A1C 7.7 % (4.0-6.0)
== END | disposition home or self-care (01) ==
LOC: LABWHC1 08:10
PROVIDERS: ATTEND Internal Medicine Endocrinology, Diabetes & Metabolism
DX: E11.65 Type 2 diabetes mellitus with hyperglycemia (principal)
CPT/HCPCS: 36415; 80053; 80061; 82043; 82570; 83036; 84443

== ENCOUNTER → 2019-08-03 | Outpatient (CLI) | payer BC ==
[2019-08-03 18:05] LABS: African American GFR (CKD) 84.1 (60.0-200.0); Albumin 4.4 g/dL (3.80-4.90); Anion Gap 8.3 mmol/L (4.00-12.00); BUN/Creat Ratio 16.36 Ratio (12.00-20.00); Calcium 9.6 mg/dL (8.7-10.3); Carbon Dioxide 28.7 mmol/L (21.6-31.8); Chol/HDL Ratio 2.75; Globulin 2.2 g/dL (1.6-3.3); LDL Cholesterol,Calculated 101.4 mg/dL (0.0-131.0); Non-African American GFR(CKD) 72.6 (60.0-200.0); Potassium 5.2 mmol/L (3.5-5.5); Total Bilirubin 0.3 mg/dL (0.3-1.2); Total Protein 6.6 g/dL (6.2-8.2); VLDL Calculation 17.6 mg/dL (5.00-40.00)
[2019-08-03 18:11] LABS: Hemoglobin A1C 8.8 % (4.0-6.0)
[2019-08-03 18:19] LABS: Urine Creatinine 26.8 mg/dL
== END | disposition home or self-care (01) ==
LOC: LABWHC1 08:02
PROVIDERS: ATTEND Internal Medicine Endocrinology, Diabetes & Metabolism
DX: E11.65 Type 2 diabetes mellitus with hyperglycemia (principal); Z12.5 Encounter for screening for malignant neoplasm of prostate
CPT/HCPCS: 80061; 80053; 84443; 82043; 82570; 83036; 36415; G0103

== ENCOUNTER 2020-01-01 21:50 | Emergency (ER) | payer BC ==
[2020-01-01] MEDS ORDERED: SODIUM CHLORIDE 0.9% 1,000 ML IV ONE (22:39)
[2020-01-01 23:08] LABS: Basophils # (A) 0.1 k/uL (0-0.2); Basophils % (A) 1 %; Eosinophils # (A) 0.3 k/uL (0-0.7); Eosinophils % (A) 3 %; HCT 49.2 % (39.0-53.0); Lymphocytes # (A) 2.1 k/uL (1.0-4.8); Lymphocytes % (A) 22 %; MCH 30.6 pg (25.0-35.0); MCHC 32.5 g/dL (31.0-37.0); MCV 94.4 fL (80.0-100.0); Monocytes # (A) 0.5 k/uL (0-1.0); Monocytes % (A) 6 %; Neutrophils % (A) 64 %; Platelet Count 209 k/uL (150-450); RBC 5.21 m/uL (4.30-5.90); RDW 13.1 % (11.5-15.5); WBC 9.4 k/uL (3.8-10.6)
[2020-01-01 23:20] LABS: ALT 22 U/L (4-49); AST 32 U/L (17-59); African American GFR (CKD) >90 (>60 ml/min/1.73 sqM); Albumin 4.5 g/dL (3.5-5.0); Alkaline Phosphatase 84 U/L (38-126); Anion Gap 14 mmol/L; Blood Urea Nitrogen 16 mg/dL (9-20); Calcium 9.4 mg/dL (8.4-10.2); Carbon Dioxide 20 mmol/L (22-30); Chloride 97 mmol/L (98-107); Glucose 213 mg/dL (74-99); Non-African American GFR(CKD) >90 (>60 ml/min/1.73 sqM); Sodium 131 mmol/L (137-145); Total Bilirubin 0.7 mg/dL (0.2-1.3); Total Protein 7.5 g/dL (6.3-8.2)
--- NOTE | 2020-01-01 23:31 | XR ---
EXAMINATION TYPE: XR foot complete LT DATE OF EXAM: 01/01/2020 COMPARISON: NONE HISTORY: Left heel wound TECHNIQUE: 3 views FINDINGS: Metatarsals are intact. There is thickening of the mid shaft second metatarsal related to o ld healed fracture. I see no acute fracture. There is plantar calcaneal spurring. There is atheroscle rotic vascular calcification. I see no focal bone destruction. IMPRESSION: No acute abnormality of the left foot. No sign of osteomyelitis.
[2020-01-01 23:41] LABS: Alcohol 172 mg/dL; Potassium 4.8 mmol/L (3.5-5.1)
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
[2020-01-02 00:13] VITALS: BP 128/83; PULSE 78; RESP 16; TEMP 96.9
== END 2020-01-02 00:13 | disposition home or self-care (01) ==
LOC: EC 21:50
DX: E11.621 Type 2 diabetes mellitus with foot ulcer (principal); L97.529 Non-pressure chronic ulcer of other part of left foot with unspecified severity; E11.65 Type 2 diabetes mellitus with hyperglycemia; R78.0 Finding of alcohol in blood; E11.40 Type 2 diabetes mellitus with diabetic neuropathy, unspecified; K21.9 Gastro-esophageal reflux disease without esophagitis; I25.10 Atherosclerotic heart disease of native coronary artery without angina pectoris; I25.2 Old myocardial infarction; G25.81 Restless legs syndrome; Z86.718 Personal history of other venous thrombosis and embolism; Z85.46 Personal history of malignant neoplasm of prostate; Z86.14 Personal history of Methicillin resistant Staphylococcus aureus infection; Z95.5 Presence of coronary angioplasty implant and graft; Z79.1 Long term (current) use of non-steroidal anti-inflammatories (NSAID); Z79.4 Long term (current) use of insulin; Z79.899 Other long term (current) drug therapy; Y90.6 Blood alcohol level of 120-199 mg/100 ml
CPT/HCPCS: 36415; 80053; 80320; 83605; 85025; 87040; 99283

== ENCOUNTER → 2020-03-27 | Outpatient (CLI) | payer BC ==
[2020-03-27 11:10] LABS: African American GFR (CKD) 75.2 (60.0-200.0); Albumin 4.3 g/dL (3.80-4.90); Albumin/Globulin Ratio 2.05 (1.60-3.17); Anion Gap 9.1 mmol/L (4.00-12.00); BUN/Creat Ratio 11.67 Ratio (12.00-20.00); Calcium 9.6 mg/dL (8.7-10.3); Carbon Dioxide 28.9 mmol/L (21.6-31.8); Chol/HDL Ratio 3.85; Globulin 2.1 g/dL (1.6-3.3); LDL Cholesterol,Calculated 118.6 mg/dL (0.0-131.0); Non-African American GFR(CKD) 64.9 (60.0-200.0); Potassium 4.7 mmol/L (3.5-5.5); Total Bilirubin 0.7 mg/dL (0.2-1.2); Total Protein 6.4 g/dL (6.2-8.2); VLDL Calculation 32.4 mg/dL (5.00-40.00)
[2020-03-27 11:40] LABS: Urine Creatinine 246.7 mg/dL
[2020-03-27 16:12] LABS: Hemoglobin A1C 8.1 % (4.0-6.0)
== END | disposition home or self-care (01) ==
LOC: LABWHC1 08:04
PROVIDERS: ATTEND Internal Medicine Endocrinology, Diabetes & Metabolism
DX: E11.65 Type 2 diabetes mellitus with hyperglycemia (principal)
CPT/HCPCS: 36415; 80053; 80061; 82043; 82570; 83036; 84443